=== PATIENT | male | born 1945 | race Caucasian/White ===

== ENCOUNTER 2020-10-14 22:53 | Emergency (ER) | payer MEDICARE ==
--- NOTE | 2020-10-14 23:10 | EDM.PDOC ---
ED HPI GENERAL MEDICAL PROBLEM - General Chief Complaint: Syncope Stated Complaint: [facility] Time Seen by Provider: 10/14/20 22:55 Source of Information: Reports: Patient, EMS. Denies: Old Records History Limitations: Reports: Other (no old records) - History of Present Illness INITIAL COMMENTS - FREE TEXT/NARRATIVE: 74 yo male here via EMS after he passed out in a bathroom and was found on the floor by family. Does have a hx of afib. Is visiting from [place]. Has been drinking this evening at least 6 drinks over the past 3 hrs. No report of pain. Uses CPAP at night. No focal deficits noted by EMS en route. Vitals stable. No apparent injury from his syncopal spell. Was initially unresponsive for EMS, answering questions just before arrival. Onset: Today, Sudden Onset Date: 10/14/20 Duration: Minutes:, Improving Location: Reports: Generalized Quality: Reports: Other (no pain reported) Severity: Moderate Improves with: Reports: Other (? time) Worsens with: Reports: Other (? 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, Other (see below) (none) - Related Data Allergies Allergy/AdvReac Type Severity Reaction Status Date / Time No Known Allergies Allergy Verified 10/14/20 23:02 Home Meds: Home Meds Albuterol Sulfate [Albuterol Sulfate Hfa] 8.5 gm IH DAILY PRN 10/14/20 [History] Aspirin [Halfprin] 81 mg PO DAILY 10/14/20 [History] Colchicine 0.6 mg PO BID 10/14/20 [History] DULoxetine [Cymbalta] 30 mg PO DAILY 10/14/20 [History] Ipratropium [place] 15 ml NS ASDIRECTED 10/14/20 [History] Metoprolol Succinate 25 mg PO DAILY 10/14/20 [History] Modafinil [Provigil] 200 mg PO DAILY 10/14/20 [History] Omeprazole 40 mg PO DAILY 10/14/20 [History] Potassium Chloride 20 meq PO DAILY 10/14/20 [History] Simvastatin [Zocor] 20 mg PO BEDTIME 10/14/20 [History] Tadalafil [Cialis] 10 mg PO DAILY 10/14/20 [History] Zinc Oxide [Desitin] 1 dose TOP ASDIRECTED 10/14/20 [History] allopurinoL [Zyloprim] 100 mg PO DAILY 10/14/20 [History] metFORMIN [Glucophage] 500 mg PO BIDMEALS 10/14/20 [History] methocarbamoL [Methocarbamol] 500 mg PO BID PRN 10/14/20 [History] ED ROS GENERAL - Review of Systems Review Of Systems: Unable To Obtain Reason Not Obtained: due to altered LOC, ? intoxication - Physical Exam Exam: See Below Exam Limited By: No Limitations General Appearance: WD/WN, No Apparent Distress, Lethargic, Obese Eye Exam: Bilateral Eye: Normal Inspection, Nystagmus (subtle, difficulty to get full cooperation), PERRL (pupils bilat. constricted and equal) Ears: Normal External Exam, Normal Canal, Hearing Grossly Normal Nose: Normal Inspection, No Blood Throat/Mouth: Normal Inspection, Normal Lips, Normal Oropharynx, Normal Voice, No Airway Compromise. No: Evidence of Tongue Biting Head Exam: Atraumatic, Normocephalic Neck: Normal Inspection Respiratory/Chest: No Respiratory Distress, Lungs Clear, Normal Breath Sounds, No Accessory Muscle Use Cardiovascular: Regular Rate, Rhythm, No Edema GI/Abdominal: Normal Bowel Sounds, Soft, Non-Tender, No Distention, Other (obese) Neuro Exam (Abbreviated): CN II-XII Intact, No Motor/Sensory Deficits, Slow to Respond. No: Oriented (partially oriented) Back Exam: Normal Inspection. No: CVA Tenderness (R), CVA Tenderness (L) Extremities: Normal Inspection, Normal Range of Motion, Non-Tender, Pedal Edema (trace pitting edema of both LE's) Psychiatric: Normal Mood, Flat Affect Skin Exam: Warm, Dry, Intact, Normal Color, No Rash #1 Interpretation EKG Date: 10/14/20 Time: 23:00 Rhythm: A-Fib Rate (Beats/Min): 61 [place]: Normal P-Wave: Absent QRS: Normal ST-T: Normal QT: Normal Comparison: NA - No Prior EKG (flat T's in inferior leads.) Course - Vital Signs Last Recorded V/S: Last Vital Signs Temp 36.1 C 10/14/20 22:56 Pulse 60 10/15/20 02:23 Resp 15 10/15/20 02:23 BP 126/61 10/15/20 02:23 Pulse Ox 98 10/15/20 02:23 - Orders/Labs/Meds Orders: Active Orders 24 hr Category Date Time Status Cardiac Monitoring [RC] .As Directed Care 10/14/20 22:58 Active EKG Documentation Completion [RC] ASDIRECTED Care 10/14/20 23:58 Active EKG 12 Lead [EK] Routine Ther 10/14/20 23:58 Ordered Labs: Laboratory Tests 10/14/20 10/14/20 10/14/20 Range/Units 23:05 23:05 23:05 WBC 7.1 (4.5-11.0) K/uL RBC 3.70 L (4.30-5.90) M/uL Hgb 12.0 (12.0-15.0) g/dL Hct 36.9 L (40.0-54.0) % MCV 100 H (80-98) fL MCH 32 H (27-31) pg MCHC 33 (32-36) % Plt Count 141 L (150-400) K/uL Sodium 139 L (140-148) mmol/L Potassium 4.0 (3.6-5.2) mmol/L Chloride 103 (100-108) mmol/L Carbon Dioxide 20 L (21-32) mmol/L Anion Gap 20.0 H (5.0-14.0) mmol/L BUN 15 (7-18) mg/dL Creatinine 1.1 (0.8-1.3) mg/dL Est Cr Clr Drug Dosing 61.80 mL/min Estimated GFR (MDRD) > 60 (>60) Glucose 152 H (74-106) mg/dL Calcium 8.3 L (8.5-10.1) mg/dL Troponin I (0.000-0.056) ng/mL Ethyl Alcohol 245 mg/dL 10/14/20 Range/Units 23:05 WBC (4.5-11.0) K/uL RBC (4.30-5.90) M/uL Hgb (12.0-15.0) g/dL Hct (40.0-54.0) % MCV (80-98) fL MCH (27-31) pg MCHC (32-36) % Plt Count (150-400) K/uL Sodium (140-148) mmol/L Potassium (3.6-5.2) mmol/L Chloride (100-108) mmol/L Carbon Dioxide (21-32) mmol/L Anion Gap (5.0-14.0) mmol/L BUN (7-18) mg/dL Creatinine (0.8-1.3) mg/dL Est Cr Clr Drug Dosing mL/min Estimated GFR (MDRD) (>60) Glucose (74-106) mg/dL Calcium (8.5-10.1) mg/dL Troponin I < 0.017 (0.000-0.056) ng/mL Ethyl Alcohol mg/dL Meds: Medications Discontinued Medications Generic Name Dose Route Start Last Admin Trade Name Freq PRN Reason Stop Dose Admin Sodium Chloride 1,000 mls @ 1,000 mls/hr 10/14/20 23:44 10/14/20 23:52 Normal Saline IV 10/15/20 00:43 1,000 mls/hr .BOLUS ONE Administration - Radiology Interpretation Free Text/Narrative:: Head CT scan- IMPRESSION: 1. No acute intracranial abnormality identified. 2. Mild age-related brain atrophy, white matter hypodensity consistent with chronic small vessel ischemic change, and chronic infarcts as detailed above. JACINTA BARNHART MD CT Results Date: 10/14/20 CT Results Time: 00:01 Departure - Departure Time of Disposition: 06:35 Disposition: Home, Self-Care 01 Condition: Fair Clinical Impression: Alcohol intoxication Qualifiers: Complication of substance-induced condition: with unspecified complication Qualified Code(s): F10.929 - Alcohol use, unspecified with intoxication, unspecified - Discharge Information *PRESCRIPTION DRUG MONITORING PROGRAM REVIEWED*: Not Applicable *COPY OF PRESCRIPTION DRUG MONITORING REPORT IN PATIENT YUMI: Not Applicable Referrals: PCP,None [Primary Care Provider] - Forms: ED Department Discharge Additional Instructions: Alcohol restriction advised. F/U with your doctor if not able to restrict intake to discuss options. Return as needed. Sepsis Event Note (ED) - Evaluation Sepsis Screening Result: No Definite Risk - Focused Exam Vital Signs: Vital Signs Temp Pulse Resp BP Pulse Ox 10/15/20 02:23 60 15 126/61 98 10/15/20 01:23 65 121/66 10/15/20 00:23 60 19 95/68 98 10/14/20 23:53 60 12 101/68 99 10/14/20 23:23 59 L 12 106/62 94 L 10/14/20 22:56 36.1 C 62 17 106/55 L 85 L - My Orders Last 24 Hours: My Active Orders 10/14/20 22:58 Cardiac Monitoring [RC] .As Directed 10/14/20 23:58 EKG Documentation Completion [RC] ASDIRECTED EKG 12 Lead [EK] Routine - Assessment/Plan Last 24 Hours: My Active Orders 10/14/20 22:58 Cardiac Monitoring [RC] .As Directed 10/14/20 23:58 EKG Documentation Completion [RC] ASDIRECTED EKG 12 Lead [EK] Routine
[2020-10-14] MEDS ORDERED: Sodium Chloride 0.9% 1,000 ML IV ONE (23:44)
--- NOTE | 2020-10-15 00:02 | CRLCT ---
For Patients: As a result of the Century Cures Act, medical imaging exams and procedure reports are released immediately into your electronic medical record. You may view this report before your referring provider. If you have questions, please contact your health care provider. INDICATION: Altered level of consciousness. Slurred speech. CT HEAD WITHOUT CONTRAST TECHNIQUE: Multiple axial CT images were performed through the head without intravenous contrast administration. COMPARISON: No previous studies are currently available for comparison. FINDINGS: No acute intracranial hemorrhage is identified. No extra-axial collections are evident and there is no mass effect or midline shift. There is mild diffuse age-related brain atrophy. Ventricular size and configuration are within normal limits for the patient`s age. There are small chronic bilateral occipital lobe infarcts, left slightly larger than right. A very small chronic lacunar infarct is noted in the superior right cerebellum. There is mild patchy hypodensity in the periventricular white matter, a nonspecific finding which most likely reflects chronic small vessel ischemic change. Osseous structures are within normal limits and no fractures are seen. Included portions of the paranasal sinuses and mastoid air cells are normally aerated. IMPRESSION: 1. No acute intracranial abnormality identified. 2. Mild age-related brain atrophy, white matter hypodensity consistent with chronic small vessel ischemic change, and chronic infarcts as detailed above. JACINTA BARNHART MD [facility] Dictated by Ramon Barnhart MD @ 10/14/2020 11:59:38 PM Please note that all CT scans at this facility use dose modulation, iterative reconstruction, and/or weight-based dosing when appropriate to reduce radiation dose to as low as reasonably achievable. Dictated by: Ramon Barnhart MD @ 10/15/2020 00:01:09 (Electronically Signed)
== END 2020-10-15 08:30 | disposition home or self-care (01) ==
LOC: JP.ED 22:53
DX: F10.129 Alcohol abuse with intoxication, unspecified (principal); Z79.82 Long term (current) use of aspirin; Z79.899 Other long term (current) drug therapy; Y90.8 Blood alcohol level of 240 mg/100 ml or more
CPT/HCPCS: 36415; 70450; 80048; 80307; 84484; 85027; 93005; 99285; J7030